=== PATIENT | male | born 1965 | race Caucasian/White ===

== ENCOUNTER 2017-11-07 18:42 | Emergency (ER) | payer BC ==
[~2017-11-07] VITALS: Ht 167.6 cm; Wt 72.8 kg
[2017-11-07 18:49] VITALS: TEMP 36.4; Ht 167.6 cm; Wt 72.8 kg
[2017-11-07] MEDS ORDERED: CEFAZOLIN SOD 1000MG/7.5 ML IV PUSH IV STA (19:19)
[2017-11-07] MEDS ORDERED: BUPIVACAINE 0.5 % 5 MG/1 ML MPF 30ML VIAL INFIL STA (19:19)
[2017-11-07] MEDS ORDERED: XYLOCAINE 1%/SOD BICARB 20 ML VIAL INFIL STA (19:19)
[2017-11-07 19:42] LABS: BASO % 0.2 %; BASO ABS # 0.02 K/uL (0-0.2); EOS ABS # 0.21 K/uL (0-0.5); HEMATOCRIT 43.4 % (42-52); HEMOGLOBIN 15.3 g/dL (14.0-18.0); IG# 0.02 K/uL (0.00-0.02); LYMPH % 18.4 %; MEAN CELL VOLUME 90.2 fL (80-100); MEAN CORPUSCULAR HEMOGLOBIN 31.8 pg (25-34); MEAN CORPUSCULAR HGB CONC 35.3 g/dl (32-36); MEAN PLATELET VOLUME 9.7 fL (7.4-10.4); MONO % 8.8 %; MONO ABS # 0.91 K/uL (0.11-0.59); NEUT % 70.4 %; NEUT ABS # 7.28 K/uL (1.4-6.5); PLATELET COUNT 223 K/uL (130-400); RED CELL DISTRIBUTION WIDTH CV 11.9 % (11.5-14.5); RED CELL DISTRIBUTION WIDTH SD 39.4 fL (36.4-46.3); WHITE BLOOD COUNT 10.34 K/uL (4.8-10.8)
[2017-11-07 20:02] LABS: CALCIUM 8.8 mg/dl (8.5-10.1); CREATININE 1.11 mg/dl (0.60-1.40); POTASSIUM 3.9 mmol/L (3.5-5.1)
[2017-11-07] MEDS ORDERED: DIPHTHERIA/TETANUS/PERTUSSIS 0.5 ML SYR/VIAL IM. ONE (20:15)
--- NOTE | 2017-11-07 20:28 | DIAGNOSTIC IMAGING REPORT ---
RIGHT HAND 3 VIEWS CLINICAL HISTORY: Crushing injury involving the third and fourth digits. FINDINGS: 3 views of the right hand are obtained. No prior studies are available for comparison at the time of dictation. The skeletal structures are mineralized. There is a comminuted nondistracted fracture involving the tuft of the third distal phalanx. There is a comminuted fracture involving the tuft of the fourth distal phalanx with numerous distracted fragments. Overlying soft tissue injury/edema is seen in the third and fourth fingers. No additional fracture is seen. The joint spaces of the hand are well-maintained. No radiodense foreign body is identified. IMPRESSION: There are comminuted fractures involving the suhas of the third and fourth distal phalanges as above with overlying soft tissue injury. Electronically signed by: Jun Tubbs M.D. 11/07/2017 8:27 PM Dictated Date/Time: 11/07/2017 8:26 PM
[2017-11-07] MEDS ORDERED: GELATIN SPONGE 12-7MM ONE (20:46)
[2017-11-07 20:50] VITALS: BP 151/85; PULSE 71; O2SAT 96
[2017-11-07] MEDS ORDERED: CEPH500C PO (20:58)
--- NOTE | 2017-11-07 20:58 | EMERGENCY ROOM VISIT NOTE ---
ED Visit Note First contact with patient: 18:53 Chief Complaint: "Smashed finger on right hand". History of Present Illness: This patient is a 52-year-old [id number] male who presents to the Emergency Department via private vehicle accompanied by female for evaluation of their right third and fourth digit laceration. Patient sustained the laceration while moving a large metal machine when he accidentally smashed his third and fourth digits between 2 heavy objects. They report a moderate amount of bleeding initially. They admit to numbness / tingling into the distal extremity. They report minimal decreased range of motion of the affected digit. They have tried ibuprofen for the pain with some relief of their symptoms. Patient rates his current discomfort as a 7/10. Patient's Tetanus status is not currently up-to-date. Medications: As noted below Allergies: Erythromycin PMH: No pertinent SHx: Patient lives locally. ROS: All pertinent positive and negative review of systems are appropriately documented in the History of Present Illness. Physical Exam: VITAL SIGNS - Vital signs and nursing notes were reviewed. Stable. GENERAL -52-year-old male appearing his stated age who is in no acute distress. Communicates well with provider and answers questions appropriately. SKIN - There is a 2 cm long laceration noted dorsal aspect of the right fourth digit. The edges gape apart with traction. No foreign bodies appreciated. Upon further examination there are no deep structures including vessel, tendon, or bony structures appreciated, however it is suspected that this does traverse to the bony fracture. There is no minimal bleeding noted. MUSCULOSKELETAL - Laceration as described above. Decreased range of motion of the right fourth digit at the PIP joint. Full range of motion of the right third digit. Minimal tenderness at the distal aspect of the right third digit. Tenderness also at the distal aspect of the right fourth. NEUROLOGIC - Spinothalamic tract was found to be intact with ability to discriminate sharp versus dull sensation. No sensory defects of the dorsal column were appreciated utilizing light touch for evaluation. VASCULAR - Capillary refill was brisk. IMAGING: RIGHT HAND 3 VIEWS CLINICAL HISTORY: Crushing injury involving the third and fourth digits. FINDINGS: 3 views of the right hand are obtained. No prior studies are available for comparison at the time of dictation. The skeletal structures are mineralized. There is a comminuted nondistracted fracture involving the tuft of the third distal phalanx. There is a comminuted fracture involving the tuft of the fourth distal phalanx with numerous distracted fragments. Overlying soft tissue injury/edema is seen in the third and fourth fingers. No additional fracture is seen. The joint spaces of the hand are well-maintained. No radiodense foreign body is identified. IMPRESSION: There are comminuted fractures involving the suhas of the third and fourth distal phalanges as above with overlying soft tissue injury. Electronically signed by: Jun Tubbs M.D. 11/07/2017 8:27 PM Dictated Date/Time: 11/07/2017 8:26 PM ED Course: Patient was seen and evaluated by myself. Risks and benefits of performing primary wound closure versus no repair were discussed with the patient who verbalizes understanding. Verbal consent was obtained prior to performing the procedure. 3 cc of 1% buffered lidocaine was used to perform a digital block of the right fourth digit. The wound was cleansed and prepped in the typical sterile fashion utilizing normal saline and Betadine. The wound was sterilely draped. Once proper anesthetization was established, the wound was further examined and demonstrated a laceration overlying a fracture. The wound was copiously irrigated with normal saline and Betadine. The wound was closed using 5 simple, 5-0 nylon sutures with the wound edges being well approximated. Patient tolerated the procedure well. No complications were met. The wound was cleansed and dressed with a Bacitracin dressing and Xeroform bulky dressing. A metal splint was applied to the finger for comfort. He declined a splint for the right third digit. He did receive a gram of Ancef. No concerning leukocytosis or anemia. Appears to be slightly dehydrated with BUN at 21. Labs were drawn to assess dosage and. Patient received their Adacel vaccination. I did discuss the case with the attending physician, and subsequently Dr. Patton, orthopedic surgeon. We discussed care and management as well as the patient is to call his office first thing tomorrow morning to be seen by the physician events assistant in the office. He will be given a Keflex prescription. Patient educated on worrisome symptoms for return visit to the Emergency Department. Patient discharged to home in good condition. In the evaluation and treatment of this patient, the following differential diagnoses were considered: Finger Fracture, Finger Dislocation, Finger Sprain, Finger Contusion, Jersey Finger, or Mallet Finger. Current/Historical Medications Scheduled Cephalexin Monohydrate (Keflex), 500 MG PO QID Vital Signs Date Time Temp Pulse Resp B/P (MAP) Pulse Ox O2 Delivery O2 Flow Rate FiO2 11/07/17 20:50 71 16 151/85 96 Room Air 11/07/17 18:49 36.4 70 20 152/88 99 Room Air Laboratory Results 11/07/17 19:30 Red Blood Count 4.81, Mean Corpuscular Volume 90.2, Mean Corpuscular Hemoglobin 31.8, Mean Corpuscular Hemoglobin Concent 35.3, Mean Platelet Volume 9.7, Neutrophils (%) (Auto) 70.4, Lymphocytes (%) (Auto) 18.4, Monocytes (%) (Auto) 8.8, Eosinophils (%) (Auto) 2.0, Basophils (%) (Auto) 0.2, Neutrophils # (Auto) 7.28, Lymphocytes # (Auto) 1.90, Monocytes # (Auto) 0.91, Eosinophils # (Auto) 0.21, Basophils # (Auto) 0.02 11/07/17 19:30 Test 11/07/17 19:30 White Blood Count 10.34 K/uL (4.8-10.8) Red Blood Count 4.81 M/uL (4.7-6.1) Hemoglobin 15.3 g/dL (14.0-18.0) Hematocrit 43.4 % (42-52) Mean Corpuscular Volume 90.2 fL (80-100) Mean Corpuscular Hemoglobin 31.8 pg (25-34) Mean Corpuscular Hemoglobin Concent 35.3 g/dl (32-36) Platelet Count 223 K/uL (130-400) Mean Platelet Volume 9.7 fL (7.4-10.4) Neutrophils (%) (Auto) 70.4 % Lymphocytes (%) (Auto) 18.4 % Monocytes (%) (Auto) 8.8 % Eosinophils (%) (Auto) 2.0 % Basophils (%) (Auto) 0.2 % Neutrophils # (Auto) 7.28 K/uL (1.4-6.5) Lymphocytes # (Auto) 1.90 K/uL (1.2-3.4) Monocytes # (Auto) 0.91 K/uL (0.11-0.59) Eosinophils # (Auto) 0.21 K/uL (0-0.5) Basophils # (Auto) 0.02 K/uL (0-0.2) RDW Standard Deviation 39.4 fL (36.4-46.3) RDW Coefficient of Variation 11.9 % (11.5-14.5) Immature Granulocyte % (Auto) 0.2 % Immature Granulocyte # (Auto) 0.02 K/uL (0.00-0.02) Anion Gap 6.0 mmol/L (3-11) Est Creatinine Clear Calc Drug Dose 70.2 ml/min Estimated GFR () 88.0 Estimated GFR (Non- 75.9 BUN/Creatinine Ratio 18.7 (10-20) Calcium Level 8.8 mg/dl (8.5-10.1) Medications Administered Medications (Trade) Dose Ordered Sig/Felicia Route Start Time Stop Time Status Last Admin Dose Admin Cefazolin Sodium (Cefazolin 1000mg Iv Push) 1,000 mg NOW STAT IV 11/07/17 19:19 11/07/17 19:21 DC 11/07/17 19:34 1,000 MG Diphtheria/ Pertussis/Tetanus Vacc (Adacel Inj) 0.5 ml ONCE ONCE IM. 11/07/17 20:15 11/07/17 20:16 DC 11/07/17 20:58 0.5 ML Departure Information Impression Primary Impression: Finger fracture Additional Impression: Laceration Dispostion Home / Self-Care Condition GOOD Prescriptions Cephalexin Monohydrate (Keflex) 500 Mg Cap 500 MG PO QID for 10 Days, #40 CAP Prov: Live Albright PA-C 11/07/17 Referrals Isabela Crisostomo PA-C (PCP) Ren Patton D.O. Patient Instructions [facility] Additional Instructions Discharge Instructions: You have received 5 sutures on your finger. These sutures are NOT dissolvable and WILL need to be removed by a health care provider in 14 days. You can return to the Emergency Department or contact the orthopedic doctor to remove Please wear the splint for comfort until the sutures are removed and for the fracture Please call Dr. Patton's office first thing tomorrow morning and asked to see Dequan Enriquez, his physician events assistant tomorrow. Keflex 500mg every 6 hours x 10 days Proper wound care is essential for adequate wound healing and infection prevention. You can shower and clean the wound with soap and water. Do not scour over the wound, pat dry with a towel. Do not submerse the wound (i.e. bathe or dish wash) until the sutures have been removed. You can use an antibiotic ointment with a dressing over the wound for the next 3-4 days. After this time you may leave the wound dry and open to the air. If crust develops over the wound you can use a Q-tip to apply a 1:1 peroxide:water solution to clean the wound. Look for signs of infection of the wound including: increased pain, swelling, foul discharge, streaking, or increased temperature. If any of these are noticed you should return to the Emergency Department for further assessment and treatment. As with any laceration you may have received nerve damage to the surrounding tissues. This damage may or may not be permanent. You should keep the area covered with sunscreen for the first 6 months to 1 year when at risk for exposure to help minimize scarring. You can also use scar reducing creams or Vitamin E oil to help minimize scarring. For pain control, you can use the following [id number] medicines: - Regular strength (325mg/tab) Tylenol (acetaminophen) 2 tabs every 4-6 hours as needed. Do not exceed 12 tablets in a 24 hour period. Avoid taking more than 3 grams (3000 mg) of Tylenol per day. This includes any other sources of acetaminophen you may take on a regular basis. - Regular strength (200 mg/tab) Advil (ibuprofen) 1-2 tabs every 4-6 hours as needed. Do not exceed a dose of 3200 mg per day. Return to the emergency department if your symptoms worsen despite treatment course outlined above. Problem Qualifiers
== END 2017-11-07 21:19 | disposition home or self-care (01) ==
LOC: C.EDB 18:45 → C.EDD 21:19
DX: S62.632A Displaced fracture of distal phalanx of right middle finger, initial encounter for closed fracture (principal); S62.634A Displaced fracture of distal phalanx of right ring finger, initial encounter for closed fracture; W23.1XXA Caught, crushed, jammed, or pinched between stationary objects, initial encounter; Z88.1 Allergy status to other antibiotic agents; Z23 Encounter for immunization

== ENCOUNTER → 2017-11-26 | Outpatient (CLI) | payer BC | END | disposition home or self-care (01) | LOC: C.RDSM 18:06 | PROVIDERS: ATTEND Physical Medicine & Rehabilitation Sports Medicine | DX: S69.91XA Unspecified injury of right wrist, hand and finger(s), initial encounter (principal); X58.XXXA Exposure to other specified factors, initial encounter ==

== ENCOUNTER → 2018-01-22 | Outpatient (CLI) | payer BC | END | disposition home or self-care (01) | LOC: C.RDSM 15:11 | PROVIDERS: ATTEND Physical Medicine & Rehabilitation Sports Medicine | DX: S62.639A Displaced fracture of distal phalanx of unspecified finger, initial encounter for closed fracture (principal); X58.XXXA Exposure to other specified factors, initial encounter ==